=== PATIENT | male | born 1940 | race Caucasian/White ===

== ENCOUNTER → 2024-08-10 10:57 | Outpatient (REF) | payer MEDICARE, SELFPAY | LOC: RCS 10:57 | PROVIDERS: ATTENDING PHYSICIAN Internal Medicine Cardiovascular Disease | DX: I35.0 Nonrheumatic aortic (valve) stenosis (principal); E78.00 Pure hypercholesterolemia, unspecified; I48.0 Paroxysmal atrial fibrillation | CPT/HCPCS: 93306 ==

== ENCOUNTER 2024-08-25 12:00 | Emergency (ER) | payer MEDICARE, SELFPAY ==
[2024-08-25] VITALS (9 sets, daily range): BP systolic 87–124; BP diastolic 55–79; PULSE 80–87; BMI 24.2
[2024-08-25 12:18] LABS: % Basophils 0.6 % (0-2); % Eosinophils 1.8 % (0-6); % Immature Granulocytes 0.3 % (0-0.5); % Monocytes 7.6 % (1.7-9.3); % Neutrophils 63.7 % (42.2-75.2); Absolute Eosinophils 0.1 10^3/uL (0-0.7); Absolute Lymphocytes 1.6 10^3/uL (1.2-3.4); Absolute Monocytes 0.5 10^3/uL (0.1-0.6); Hemoglobin 12.7 g/dL (13.0-18.0); Mean Corp Hgb Conc. 34.3 g/dL (33.0-37.0); Mean Corpuscular Hgb 31.3 pg (27.0-31.0); Mean Corpuscular Volume 91.1 fL (80.0-94.0); Mean Platelet Volume 9.1 fL (7.4-10.4); Nucleated Red Blood Cells % 0 % (-); Platelet Count 146 10^3/uL (130-400); Red Blood Cell Count 4.06 10^6/uL (4.70-6.10); Red Cell Dist. Width 12.1 % (11.5-14.5); White Blood Cell Count 6.3 10^3/uL (4.8-10.8)
[2024-08-25 12:34] LABS: ALT (SGPT) 28 U/L (0-50); AST (SGOT) 30 U/L (17-59); Albumin 3.5 g/dl (3.5-5.0); Alkaline Phosphatase 77 U/L (38-126); Blood Urea Nitrogen 21 mg/dl (9-20); Calcium 8.3 mg/dl (8.4-10.2); Carbon Dioxide 21 mmol/L (22-30); Chloride 108 mmol/L (98-107); Estimated Creatinine Clearance 50 ml/min; Glucose 121 mg/dl (70-99); Sodium 140 mmol/L (135-145); Total Bilirubin 1.7 mg/dl (0.2-1.3); Total Protein 5.7 g/dl (6.3-8.2); eGFR > 60.00
[2024-08-25] MEDS: NSS 1000 IV (12:39)
[2024-08-25 12:46] LABS: Troponin I < 0.012 ng/ml
--- NOTE | 2024-08-25 13:54 | ED.GENMED ---
History of Present Illness
General
Chief Complaint: Fainting/Passed Out
Time Seen by Provider: 08/25/24 12:02
History of Present Illness
History of Present Illness:
84-year-old male with history of PE on Xarelto presenting to the emergency department after a syncopal episode. Patient reports he was at a car show prior to arrival. He was sitting in the sun, incidentally started to feel lightheaded, sat down
and had a syncopal episode, witnessed. No report of any fall or trauma. Denies any prodromal chest pain or difficulty breathing. Reports that he now feeling fine. Does admit that he only had half a bottle of water today, did not eat anything.
Reports history of 1 syncopal episode in the past. Denies any weakness or numbness to his extremities. Denies fever, cough, infectious symptoms. Denies additional acute medical complaints.
Phy Exam
Physical Exam
Physical Exam:
General: Well-appearing, no clinical signs of dehydration, nontoxic and in no acute distress
HEENT: protecting airway
Neck: appears supple
CV: Normal heart rate, regular rhythm, no evidence of cyanosis
Resp: No accessory muscle use, no increased work of breathing, lungs clear to auscultation bilaterally
Abd: Soft and non-distended, no tenderness to palpation
Extremities: No deformities, no swelling, no erythema
Neuro: alert, no focal neurologic deficit
: deferred
Rectal: deferred
Psych: Normal affect
Skin: Intact
Course
Orders/Labs/Results
Orders:
Orders
08/25/24 12:06
Electrocardiogram (*1) Urgent
Reason for Study: Syncope
08/25/24 12:07
EKG- Treatment ONCE
08/25/24 12:08
Complete Blood Count/With Diff Urgent
Comprehensive Metabolic Panel Urgent
Troponin I Urgent
08/25/24 12:27
0.9% Sodium Chloride 1000 ml [Nss] 1,000 ml IV BOLUS
08/25/24 13:43
Orthostatic VS- Treatment ONCE
08/25/24 14:00
Electrocardiogram (*1) Urgent
EKG- Treatment ONCE
Abnormal Lab Results
08/25/24
12:08
RBC 4.06 L 10^6/uL
(4.70-6.10)
Hgb 12.7 L g/dL
(13.0-18.0)
Hct 37.0 L %
(39.0-52.0)
MCH 31.3 H pg
(27.0-31.0)
Chloride 108 H mmol/L
(98-107)
Carbon Dioxide 21 L mmol/L
(22-30)
BUN 21 H mg/dl
(9-20)
Glucose 121 H mg/dl
(70-99)
Calcium 8.3 L mg/dl
(8.4-10.2)
Total Bilirubin 1.7 H mg/dl
(0.2-1.3)
Total Protein 5.7 L g/dl
(6.3-8.2)
08/25/24 12:08
08/25/24 12:08
Vital Signs
Initial and Last Documented VS:
Initial Vital Signs
Temp Pulse Resp BP Pulse Ox
97.6 F 71 11 114/76 96
08/25/24 12:02 08/25/24 12:02 08/25/24 12:02 08/25/24 12:02 08/25/24 12:02
Last Documented Vital Signs
Temp Pulse Resp BP Pulse Ox
97.6 F 83 18 101/66 96
08/25/24 12:02 08/25/24 14:00 08/25/24 14:00 08/25/24 14:00 08/25/24 14:00
MDM/Problems Addressed
MDM/Problems Addressed:
84-year-old male with past medical history of PE on Xarelto presenting to the emergency department for a syncopal episode prior to arrival. Vital signs on arrival are normal.
On exam patient is well-appearing, awake, alert, no physical signs of trauma. Benign cardiac and pulmonary exam. Symptom presentation and physical exam appears most consistent with vasovagal syncope. Patient reports he was out in the sun, had an
or drink anything prior to arrival, prodromal lightheadedness. No focal neurologic deficits on exam with lower suspicion for central neurologic process. Will administer IV fluids in the setting of suspected volume depletion. Will screen Johnny
analysis. EKG obtained, does have some T wave inversions laterally, no prior for comparison. Patient presently without chest pain. Will send troponin.
13:50 - Labs are unremarkable. Blood pressure is slightly low, however maintaining normal MAP. Will check orthostatics and recheck EKG to ensure no interval change.
14:30 - EKG unchanged. Orthostatics are negative. At this time feel stable for discharge. Patient in agreement with plan. However advise close outpatient primary care follow-up. Advised continued oral hydration. Return precautions discussed
and patient verbalized understanding
*EKG
Interpreted by ED Provider?: Yes
EKG Intrepretation Date: 08/25/24
EKG Intrepretation Time: 14:01
Interpretation: abnormal
Comparison EKG: no comparison EKG present
Heart Rate: 77
Rate: normal
Rhythm: sinus
Hurt: left axis deviation
Interval: normal interval
QRS Pattern: normal QRS
Ischemia: non-specific ST changes
*Critical Care Note
Total Time (30-74mins, 75-104mins- exclusive of procedures): Not Applicable
ED Attending Note
-
Portions of this chart may have been created with voice recognition software.� Occasional wrong word or��sound alike� substitutions may have occurred due to the inherent limitations of voice recognition software.
Discharge Plan
Departure
Patient Disposition: Home (Routine Discharge)
Date of Disposition: 10/06/24
Time of Disposition: 14:28
Patient with high blood pressure during this ER visit?: No
Condition: Good
Discharge Problem:
Syncope and collapse
Instructions: Syncope (Fainting) (DC), Vasovagal Response (DC)
Referrals:
Laurita Rice MD [Family Provider] -
Activity Restrictions/Additional Instructions:
You were seen in the emergency department for syncopal episode (passing out)
You were found to have normal laboratory analysis. You are suspected to be dehydrated. Please continue to drink fluids
Please follow-up closely with your primary care physician.
Return to the emergency department for any worsening of your symptoms, or any development of chest pain, difficulty breathing, abdominal pain with persistent vomiting and inability to tolerate food or liquid by mouth (concern for dehydration),
weakness or lightheadedness, or feeling like you are going to pass out again, headache or confusion, fever greater than 100.4, or any additional symptoms that are concerning to you.
Thank you for choosing [facility].
Interventions
Interventions:
*Risk Screen - Suicide Last Done: 08/25/24 12:05
*General Assessment Last Done: 08/25/24 12:09
*Neglect/Abuse Screening Last Done: 08/25/24 12:05
ED- Fall Risk Assessment Last Done: 08/25/24 12:05
*ED COVID-19 Vaccine History Last Done: 08/25/24 12:05
ED- Cardiac Assessment Last Done: 08/25/24 12:06
ED- Neurological Assessment Last Done: 08/25/24 12:06
Discharge Date and Time
Print Language: ROMANIAN
== END 2024-08-25 15:21 | disposition home or self-care (01) ==
LOC: EMR 12:00
PROVIDERS: EMERGENCY PHYSICIAN Student in an Organized Health Care Education/Training Program; FAMILY PHYSICIAN Family Medicine
DX: R55 Syncope and collapse (principal); Z79.01 Long term (current) use of anticoagulants; Z86.711 Personal history of pulmonary embolism
CPT/HCPCS: 99283; 96360; 80053; 84484; 85025; 93005

== ENCOUNTER 2024-09-18 08:12 | Day surgery (SDC) | payer MEDICARE, SELFPAY ==
--- NOTE | 2024-09-17 16:10 | CONSULT.STRU ---
Consultation
-
Date/Time Consultation Requested: 09/18/2024
Date/Time Consultation Performed: 09/18/2024
Requesting Provider: Jeanine Johnson MD
Performing Provider: MANJIT De La Fuente
Reason for Consultation: /TAVR
Patient History
Physicians
Family Physician: Varun Medina MD
Outpatient Cis Coordinator: Gabriel Hu MD
Primary Cis Coordinator: Gabriel Hu MD
History of Present Illness
Mr. Edwards is a very pleasant 84 yom that presents with symptomatic aortic stenosis associated with fatigue noticing he was unable to play a full round of 18 holes in golf. He also states he has been more tired lately. His echocardiogram from
08/10/2024 is notable for an EF 55-60%, AV P/M 103/53, RAEGAN 0.6, pk Chris 5.09, mild AI, MAC with mild MR, mild TR, PAP 20. Discussed the pathophysiology and treatment options of aortic stenosis including SAVR and TAVR. Explained the evaluation process
comprising of CT scan, CT surgical consult, dental clearance, and a heart team discussion. TAVR booklet, appointments, prescriptions, and contact information given to patient. Allowed for and answered questions at bedside.
Past Medical History
Past Medical History: Atrial Fib (PAF C2V:3), Hypercholesterolemia, Valvular Disease (aortic stenosis) and Other (PE, prostate Ca, glaucoma, protein C deficiency, hiatal hernia)
Past Surgical History
Past Surgical History: Other (LE clot removal, cataract extraction and lens implant)
Dental History
[facility] dentistry
Family History
Mother: N/A
Father: N/A
Social History
Alcohol: Daily (1-2 drinks daily)
Drug: None
Tobacco: Former Smoker
Personal:
Living: With Spouse
Allergies
Allergy/AdvReac Type Severity Reaction Status Date / Time
diazepam [From Valium] Allergy Nausea / Verified 08/25/24 12:32
Vomiting
enoxaparin [From Lovenox] Allergy Racing Verified 08/25/24 12:32
Heart
rofecoxib [From Vioxx] Allergy Racing Verified 08/25/24 12:32
Heart
Home Medications
CoEnzym Q10 200 mg daily
Dorzolamide-Timolol 2-0.5% 1 gtt (R) BID
Multivitamin 1 tab daily
Riveroxaban 20 mg daily
AREDS2 1 tab BID
STS%
STS %: 3.08
Review of Systems
-
History Source: Patient
General: Reports Fatigue
HEENT: Reports No Symptoms
Respiratory: Reports No Symptoms
Cardiac: Reports No Symptoms
Abdomen/GI: Reports No Symptoms
: Reports No Symptoms
Musculoskeletal: Reports No Symptoms
Skin: Reports No Symptoms
Neurological: Reports No Symptoms
Vascular: Reports No Symptoms
Physical Exam
Labs
08/25/2024:
HH 12.7/37.0
plt: 146K
BUN/Creatinine: 21/1.0
GFR: >60
Diagnostic Studies
Echocardiogram 08/10/2024:
CONCLUSIONS
Mild concentric left ventricular hypertrophy. No regional wall motion
abnormalities are seen. LV ejection fraction is 55-60% by Maravilla's method of
discs. Visually, EF = 50-55%. Diastolic function indeterminate.
Mitral valve opens normally. Mitral annular calcification. Mild mitral
regurgitation.
Thickened calcified aortic valve with restricted leaflet motion. Severe aortic
stenosis. Peak/mean gradients across the aortic valve are 103 mmHg/53 mmHg
respectively. The aortic valve by the Continuity equation is calculated at 0.6
cm2 using LVOT diameter 2.2 cm. Mild aortic regurgitation.
Cardiac Catheterization 09/18/2024:
Coronary Angiography:
Dominance: Right
Left Main: Medium caliber, normal.
Left Anterior Descending: The left anterior descending artery is a medium caliber vessel that gives rise to 1 major medium caliber high diagonal branch. These vessels are widely patent with mild to moderate nonobstructive luminal irregularities.
Ramus intermedius: Medium caliber ramus intermedius branch widely patent with mild to minimal irregularities.
Left Circumflex: The left circumflex is a medium caliber nondominant system that gives rise to a branching major obtuse marginal branch. Mild nonobstructive luminal irregularities with normal flow.
Right Coronary: The right coronary artery is a medium to large caliber dominant vessel that gives rise to a relatively small posterior descending artery and 2 medium posterior left ventricular branches. These vessels are widely patent with no focal
flow-limiting disease.
Fluoroscopy Time (min): 2.9
Radiation Dose (mGy): 161
DAP (Gy.cm2): 11
Closure device: None. A TR band was applied for hemostasis at the right wrist.
Complications: None.
ASSESSMENT:
1: Severe aortic valvular stenosis.
2: Mild nonobstructive coronary artery disease.
CONCLUSIONS and RECOMMENDATIONS:
1: Proceed with formal TAVR evaluation.
Procedure Type:�Isolated AVR
PERIOPERATIVE OUTCOME ESTIMATE %
Operative Mortality 3.08%
Morbidity & Mortality 7.74%
Stroke 1.46%
Renal Failure 1.5%
Reoperation 4.36%
Prolonged Ventilation 3.52%
Deep Sternal Wound Infection 0.038%
Long Hospital Stay (>14 days) 4.76%
Short Hospital Stay (<6 days)* 45.2%
Exam
General: Well Developed, Well Nourished, No Apparent Distress and Comfortable
HEENT: Moist Mucous Membranes
Neck: Trachea Midline
Respiratory: Clear
Cardiac: Regular Rhythm and Murmur (II/)
GI: Soft, Non Tender, Non Distended and Normal Bowel Sounds
Rectal: Deferred by Provider
Skin: Warm
Neuro: Awake, Alert and Oriented
Psych: Calm
Assessment / Plan
-
Aortic Stenosis
Continue with TAVR evaluation
Trend creatinine after contrast (Rx given)
TAVR CT scan (10/04)
CT surgical consult ( TT 10/02)
Frailty testing and Kccq12 at consult
dental clearance
Will hold Xarelto x 48 hours before TAVR. Will place on aspirin while Xarelto held
Heart team discussion
Data Reviewed
-
Instrumentation Engineer: Report Reviewed by me
Echo: Report Reviewed by me and Discussed with Physician
Labs: Labs Reviewed by me
Old Records: Reviewed (Dr. Hu's OV reviewed)
Total Time Spent with Patient (in minutes): 45
[2024-09-18] VITALS (11 sets, daily range): BP systolic 102–170; BP diastolic 64–109; BMI 23.3
[2024-09-18] MEDS: LOW STRENGTH ASPIRIN 324 MG PO (08:31)
--- NOTE | 2024-09-18 08:39 | ITS.CL.CATH ---
[employer] Manager - Catheterization
Cardiac Catheterization
Procedure Report:
LEFT HEART CATHETERIZATION
Date of Procedure: September 18, 2024
Procedures performed:
1: Coronary angiography
2: Left ventricular hemodynamic assessment
Primary Care Physician: Dr. Bucky Reyes
Primary Shank Cementer Hand: Dr. Gabriel Hu
INDICATION: The patient is an 84-year-old man with a past medical history significant for severe aortic stenosis referred for coronary angiography in preparation for aortic valve intervention. The patient is on chronic Xarelto for a prior upper
extremity DVT which was held for this procedure. Echocardiography performed on January 10 showed normal LV systolic function with a mean gradient of 39 mmHg across the aortic valve and an aortic valve area by the continuity equation is 0.76 cm�
and aortic valve dimensionless index of 0.23.
ACCESS: The patient was prepped and draped in usual sterile fashion. A 5 Pashto sheath was placed in the right radial artery using the Seldinger over the wire technique.
HEMODYNAMIC FINDINGS (mmHg):
LV(s/d,EDP): 190/11, 18
Ao(s/d,m): 151/73, 100
Mean gradient on pullback: 39 mmHg
ANGIOGRAPHIC FINDINGS:
Single-plane Left Ventriculography in [facility] Projection: Not done
Coronary Angiography:
Dominance: Right
Left Main: Medium caliber, normal.
Left Anterior Descending: The left anterior descending artery is a medium caliber vessel that gives rise to 1 major medium caliber high diagonal branch. These vessels are widely patent with mild to moderate nonobstructive luminal irregularities.
Ramus intermedius: Medium caliber ramus intermedius branch widely patent with mild to minimal irregularities.
Left Circumflex: The left circumflex is a medium caliber nondominant system that gives rise to a branching major obtuse marginal branch. Mild nonobstructive luminal irregularities with normal flow.
Right Coronary: The right coronary artery is a medium to large caliber dominant vessel that gives rise to a relatively small posterior descending artery and 2 medium posterior left ventricular branches. These vessels are widely patent with no focal
flow-limiting disease.
Fluoroscopy Time (min): 2.9
Radiation Dose (mGy): 161
DAP (Gy.cm2): 11
Closure device: None. A TR band was applied for hemostasis at the right wrist.
Complications: None.
ASSESSMENT:
1: Severe aortic valvular stenosis.
2: Mild nonobstructive coronary artery disease.
CONCLUSIONS and RECOMMENDATIONS:
1: Proceed with formal TAVR evaluation.
Jeanine Johnson M.D.
Copy to: Dr. Bucky Reyes
== END 2024-09-18 12:44 | disposition home or self-care (01) ==
LOC: CATH 08:12
PROVIDERS: ATTENDING PHYSICIAN Internal Medicine Interventional Cardiology; PRIMARYCARE PHYSICIAN Student in an Organized Health Care Education/Training Program; REFERRING PHYSICIAN Internal Medicine Cardiovascular Disease
DX: I08.0 Rheumatic disorders of both mitral and aortic valves (principal); I25.10 Atherosclerotic heart disease of native coronary artery without angina pectoris; I48.0 Paroxysmal atrial fibrillation; E78.00 Pure hypercholesterolemia, unspecified; Z85.46 Personal history of malignant neoplasm of prostate; Z87.891 Personal history of nicotine dependence; Z79.01 Long term (current) use of anticoagulants
CPT/HCPCS: 93458; C1894; Q9967

== ENCOUNTER → 2024-10-04 09:17 | Outpatient (REF) | payer MEDICARE, SELFPAY | LOC: RAD 09:17 | PROVIDERS: ATTENDING PHYSICIAN Nurse Practitioner Acute Care; FAMILY PHYSICIAN Internal Medicine Cardiovascular Disease | DX: I35.0 Nonrheumatic aortic (valve) stenosis (principal) | CPT/HCPCS: 74174; 75572; Q9967 ==

== ENCOUNTER 2024-11-14 07:15 | Inpatient (IN) | payer MEDICARE, SELFPAY ==
[2024-11-05 12:02] VITALS: BMI 23.8
[2024-11-05 12:54] LABS: Urine Albumin Negative (Neg - Trace); Urine Bilirubin Negative (Negative); Urine Character Clear (Clear); Urine Color Yellow; Urine Glucose Negative (Negative); Urine Ketone Negative (Negative); Urine Leukocyte Negative (Negative); Urine Nitrite Negative (Negative); Urine Occult Blood Negative (Negative); Urine Specific Gravity 1.015 (<1.030); Urine Urobilinogen Negative (Neg - 1+)
[2024-11-05 13:02] LABS: % Basophils 0.7 % (0-2); % Eosinophils 2.4 % (0-6); % Immature Granulocytes 0.3 % (0-0.5); % Lymphocytes 25.5 % (20.5-51.1); % Monocytes 10.5 % (1.7-9.3); % Neutrophils 60.6 % (42.2-75.2); Absolute Eosinophils 0.1 10^3/uL (0-0.7); Absolute Lymphocytes 1.5 10^3/uL (1.2-3.4); Absolute Monocytes 0.6 10^3/uL (0.1-0.6); Absolute Neutrophils 3.6 10^3/uL (1.4-6.5); Hematocrit 42.3 % (39.0-52.0); Hemoglobin 14.5 g/dL (13.0-18.0); Mean Corp Hgb Conc. 34.3 g/dL (33.0-37.0); Mean Corpuscular Hgb 32.2 pg (27.0-31.0); Mean Corpuscular Volume 93.8 fL (80.0-94.0); Mean Platelet Volume 9.2 fL (7.4-10.4); Nucleated Red Blood Cells % 0 % (-); Platelet Count 156 10^3/uL (130-400); Red Blood Cell Count 4.51 10^6/uL (4.70-6.10); Red Cell Dist. Width 11.9 % (11.5-14.5); White Blood Cell Count 5.9 10^3/uL (4.8-10.8)
[2024-11-05 13:09] LABS: INR 1.26; PT 16.1 Sec (11.4-14.6)
[2024-11-05 13:10] LABS: APTT 36.4 Sec (23.4-35.0)
[2024-11-05 13:42] LABS: ALT (SGPT) 34 U/L (0-50); AST (SGOT) 35 U/L (17-59); Albumin 4.2 g/dl (3.5-5.0); Alkaline Phosphatase 78 U/L (38-126); Blood Urea Nitrogen 20 mg/dl (9-20); Carbon Dioxide 26 mmol/L (22-30); Chloride 103 mmol/L (98-107); Direct Bilirubin 0.1 mg/dl (0.0-0.4); Estimated Creatinine Clearance 50 ml/min; Glucose 105 mg/dl (70-99); Potassium 4.3 mmol/L (3.5-5.1); Sodium 137 mmol/L (135-145); Total Bilirubin 1.2 mg/dl (0.2-1.3); Total Protein 6.7 g/dl (6.3-8.2); eGFR > 60.00
[2024-11-05 13:49] LABS: NT-proBNP 224 pg/ml
--- NOTE | 2024-11-05 14:16 | CM ---
Chart reviewed. Met with the patient and his in PAT. Reviewed preoperative and postoperative instructions and restrictions, along with showering guidelines. Gave patient 2 soaps. Patient is agreeable to a home visit by CT Transitional
RN. Patient is independent of ADLS, lives with his in a [address], 1 [address]PHANIE, 0 DME. Plan is for the patient to return home with CT Transitional RN.
--- NOTE | 2024-11-05 14:16 | HPS.HSE ---
Family Physician
-
Family Physician: Bucky Reyes, DO
Chief Complaint
-
Fatigue
History of Present Illness
Mr. Edwards is a very pleasant 84 yom that presents with symptomatic aortic stenosis associated with fatigue noticing he was unable to play a full round of 18 holes in golf. He also states he has been more tired lately. His echocardiogram from
08/10/2024 is notable for an EF 55-60%, AV P/M 103/53, RAEGAN 0.6, pk Chris 5.09, mild AI, MAC with mild MR, mild TR, PAP 20. Discussed the pathophysiology and treatment options of aortic stenosis including SAVR and TAVR. He has been evaluated by the
heart team and recommended for TF TAVR .
Assessed in preadmission testing and confirmed medication list. His last dose of Xarelto will be Monday11/11/2024, he will take 325mg aspirin on Monday 11/12, 81 mg aspirin 11/13 and 11/14. Aspirin will be discontinued when Xarelto is resumed post
TAVR. Mr. Edwards will arrive to the [facility] @ 0730. Discussed risked of procedure as reviewed with Dr. Maldonado in consult including ppm, stroke, and vascular injury. Informed patient that he will get a phone call from the heart team on Monday
(11/12) to confirm time and location of arrival. Allowed for and answered questions.
Medical History
Past Medical History
Past Medical History: Reports Arrhythmia (Afib), Cancer (prostate (XRT completed 2016)), Valvular Disease (aortic stenosis) and Other (Protein C deficiency, HLD, hiatal hernia, PE, glaucoma, former smoker, BPH, Arthritis, deviated septum)
Past Surgical History: Reports Other (LE clot removal, cataract extraction and lens implant, steroid injection in neck, dental implants)
Social History
Tobacco: Former Smoker
Alcohol: Daily
Drug: None
Personal:
Living: With Family
Employment: Retired
Family History
Family History: Not pertinent
Allergies / Home Medications
Allergies reflects when Allergies were last updated in [facility].
Valium, Vioxx, Levaquin
Home Medications with original date entered in [facility]
Allergy/Medication List:
CoQ-10
Dorzolamide-Timolol , Notes to Pharmacist: 22.3-6.8mg/ml 1 drop both eyes BID
Multivitamin(Multiple Vitamin) - Tablet 1 tablet Orally Once a day
Other , Notes to Pharmacist: AREDS2
Xarelto(Rivaroxaban) 20 MG Tablet 1 tablet with food Orally Once a day
Review of Systems
-
History Source: Patient
A 12 point ROS was completed and negative except as noted: Yes
Constitutional: Reports Fatigue
Physical Exam
Physical Exam
General: Well Developed, Well Nourished, No Apparent Distress and Comfortable
HEENT: NormoCephalic and Atraumatic
Respiratory: Clear
Cardiac: Murmur (III/)
Breast: Deferred by me
GI: Soft, Non Tender and Non Distended
Rectal: Deferred by Provider
Genito-urinary: Deferred by me
Musculoskeletal: Edema, Left Lower Extremity (trace) and Edema, Right Lower Extremity (Trace)
Skin: Warm and Dry
Neuro: Awake and Alert
Psych: Calm
Laboratory Results
-
11/05/24 12:13
11/05/24 12:13
Laboratory Results
PT 16.1 Sec (11.4-14.6) H 11/05/24 12:13
INR 1.26 11/05/24 12:13
APTT 36.4 Sec (23.4-35.0) H 11/05/24 12:13
Total Bilirubin 1.2 mg/dl (0.2-1.3) 11/05/24 12:13
AST 35 U/L (17-59) 11/05/24 12:13
ALT 34 U/L (0-50) 11/05/24 12:13
Alkaline Phosphatase 78 U/L (38-126) 11/05/24 12:13
Data Reviewed
-
Diagnostic Radiology: Report Reviewed by me
CT Scan: Report Reviewed by me and Discussed with Physician (TAVR CT scan reviewed with the heart team)
Medical Tests (Nuc Med, Echo, EKG etc): Report Reviewed by me and Discussed with Physician (cardiac catheterization and echocardiogram reviewed with the heart team)
Lab Data: Labs Reviewed by me
Old Records: Reviewed (Dr. Hu and Dr. Maldonado's office note)
Impression/Plan
-
IMPRESSION/ PLAN:
Aortic Stenosis
Plan for TF TAVR utilizing a 29 mm S3 via transfemoral access with Dr. Maldonado and Dr. Rolle
Last dose Xareto Sunday 11/11, Aspirin 325mg 11/12, Aspirin 81 mg 11/13, 11/14. Discontinue aspirin when xarelto resumed
POD#1/#30 echocardiogram
Cardiac Rehab Consult.
[2024-11-05 14:21] LABS: Glycohemoglobin (HgbA1c) 5.5 % (4.0-5.6)
[2024-11-14] VITALS (50 sets, daily range): BP systolic 53–155; BP diastolic 37–110; BMI 23.2
--- NOTE | 2024-11-14 09:41 | W.CVOR.SURPR ---
CVOR Surgeon Immed Pre Op
-
I have examined this patient prior to performance of the scheduled procedure.
The patient's condition is unchanged from the time of the dictated/written History and
Physical and the patient is able to undergo the scheduled procedure.
TF TAVR
[2024-11-14] MEDS: ANCEF 10 IV (10:30)
[2024-11-14 11:43] LABS: ACT-LR - POC 297 Seconds (116-155)
[2024-11-14 11:57] LABS: ACT-LR - POC 298 Seconds (116-155)
--- NOTE | 2024-11-14 12:09 | W.PN.CT.SURG ---
CT Surgery Operative Note
-
OPERATIVE REPORT
Preoperative Diagnosis: Severe aortic valve stenosis, symptomatic
Postoperative Diagnosis: Same
Procedure(s) Performed: Right trans femoral TAVR with a 29mm Lao TAVR valve
Date of Procedure: 11/14/24
Comorbidities:
1. Severe aortic stenosis, Symptomatic
2. 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
3. Hypertension
4. Hyperlipidemia
5. BPH
6. History of pulm embolism
7. History of atrial fibrillation
8. History of prostatic cancer status post radiation for treatment
Cardiac Surgeon: Osmar Maldonado MD, MS
Furniture Duster: Camron Rolle MD
Anesthesia: Conscious Sedation and Local Analgesia
EBL: 100cc
Products: none
Implant: 29 mm Lao TAVR valve, SN: [id number]
Indication(s) for Procedures: 84-year-old male with symptomatic severe aortic stenosis. CT-TAVR protocol revealed acceptable anatomy for TAVR access and implantation. This patient was seen by the multidisciplinary structural heart team with
overall consensus between general cardiology, interventional cardiology, and cardiac surgery that they were a TAVR appropriate candidate.
Start time: 1105hrs
Deployment time: 1144hrs
End time: 1205hrs
Radiation Dose (mGy): 286.64
DAP (cm2.Gy): 29.5530
Fluoroscopy time (minutes): 13.2
Contrast volume (ml): 105
TAVR gradient (mmHg): 6mmHg
Heparin Dose: 5500units
Protamine Dose: 40mg
Final Valve Positionin/10
Findings: Preoperative LVEF was 65% and was 65% following TAVR without inotropic support. Function was overall normal without regional wall motion abnormalities or dyskinesia. The aortic valve was well seated without detectable PVL and mean gradient
across the new valve was 6mmHg. following: The valve there was a new right bundle branch block, the patient did not require any additional pacing and so the pacing wire was removed while on the Windows Desktop Engineer table. There was successful placement of 29 mm
nominal TAVR valve without acute complications. The patient had an LVEDP of approximately 30 mmHg prior to TAVR deployment indicating acute on chronic systolic and diastolic congestive heart failure with volume overload. Lasix given in the
recovery suite.
Access:
1. Device -right common femoral artery, perclose x 2 [+ 8Fr angioseal]
2. Pigtail -right radial plus TR band
3. Transvenous Pacer -left common femoral vein
Description of Procedure: The patient was taken to the veterinary laboratory diagnostician. Their identity and procedure to be performed were verified and they were positioned supine on the veterinary laboratory diagnostician table. Induction via conscious sedation. The patient was then prepped and
draped from chin to thigh in a sterile fashion. A preoperative time-out was performed with all members of the team present. Arterial and venous access was performed using fluoroscopy and ultrasound guidance with micropuncture and Seldinger
technique. Two perclose devices were used on the device side followed by access to the aorta with a stiff wire to facilitate E-sheath placement. Heparin was given. A stiff straight wire and AL-1 catheter was used to cross the aortic valve. An LVEDP
was then measured here. The stiff wire was exchanged for an extra stiff coiled tip wire. The valve was prepped and mounted on to the device carrier. An ACT of >250 was achieved. We verified x 3 that the valve was mounted in the correct orientation
with the skirt of the valve directed toward the tip of the device carrier. We advanced the device into the descending thoracic aorta where the valve was them mounted onto the balloon under fluoroscopy. The device was flexed and advanced over the
arch into the root and positioned across the aortic valve. Contrast fluoroscopy was used to visualize the prosthesis across the valve and to guide positioning. A pigtail catheter in the RCC as used as a guide. We aimed to have the bottom of the
device marker at the annular hinge point. The device sheath was pulled back. We performed a quick pre-deployment time out. The pacer was turned on and had capture. Blood pressure fell accordingly, angiography was done to verify the intended final
placement and the valve was deployed with 5 seconds of rapid pacing to nominal volume. The balloon was deflated and the pacer was turned off. We had recovery of vitals. The device carrier was unflexed and positioned back in the descending thoracic
aorta. A transthoracic echocardiogram was performed. The device was removed from the E-Sheath maintaining wire access followed by removal of the E-sheath as we cinched down the perclose devices. There was acceptable hemostasis. The pigtail was
exchanged after accessing the descending thoracic aorta with a J-wire and a long pigtail was inserted over the wire into the descending/abdominal and completion aortogram with runoff run-off angiography was performed. There was no stenosis or
dissection of the right common iliac or femoral system. There was acceptable hemostasis of bilateral groins and manual pressure was held following wire removal. Low dose protamine was administered after checking another ACT.
All instrument, sponge, and needle counts were confirmed to be correct x 2 at the end of the operation. The patient was transferred to the cardiac intensive care unit in stable condition.
I, Dr. Osmar Maldonado, was present, scrubbed for, and performed all critical elements of this procedure.
Osmar Maldonado MD
Cardiothoracic Surgeon
[facility]
This operative dictation was created using the [employer] dictation system. Please excuse any grammatical, typographical, or 'sound alike' errors
[2024-11-14] MEDS: LEVOPHED 250 IV (12:29)
--- NOTE | 2024-11-14 14:12 | W.PN.UPDATE ---
Update Note
Progress Note Update
Reviewed Mr. Edwards with the heart team in the preTAVR SDM meeting and confirmed a 29mm S3 via right transfemoral access. Patient will resume Xarelto post TAVR, aspirin to be d/c'd when Xarelto resumed. LVEDP 30mmHg. #29mm S3 (serial# [id number])
successfully implanted via (R) transfemoral access. Post MG 6mmHg.
--- NOTE | 2024-11-14 14:28 | CM ---
Chart reviewed. Patient is in the OR today. Patient is independent of ADLS, lives with his in a [address], 1 [address], 0 DME. Plan is for the patient to return home with CT Transitional RN.
[2024-11-14] MEDS: THERAGRAN PO (14:54)
[2024-11-14] MEDS: LASIX 40 MG IV (15:20)
[2024-11-14 15:35] LABS: Magnesium 2.2 mg/dl (1.6-2.3)
[2024-11-14] MEDS: ANCEF IV (15:38)
[2024-11-14] MEDS: FLUSH (NSS) 1 FLUSH IV (17:07)
[2024-11-14] MEDS: COSOPT EYE DROPS 1 DROP OPHTH ×2 (17:07→20:43)
[2024-11-14] MEDS: KCL 20 MEQ PO (17:08)
[2024-11-14] MEDS: ANCEF 5 IV (17:10)
--- NOTE | 2024-11-14 17:43 | W.PN.UPDATE ---
Update Note
Progress Note Update
Responded to overhead Code 9. Per RN, patient became hypotensive and 'went out' after Levophed weaned to 1mcg/min. Patient responsive upon entering room. Levophed increased to 5mcg/min and LR 250cc bolus given. Dr Teresa present and EKG/labs
ordered. Groin sites with quater size sanguinous drainage (unchanged). BP improved t o105/70 an dpatient fully conversant with . Denies pain. Dr. Maldonado updated to events.
--- NOTE | 2024-11-14 17:45 | W.PN.UPDATE ---
Update Note
Progress Note Update
pt with episode of hypotension SBP in 60s and near syncope.
Tele with no pauses or bradycardia. Sinus rhythm with first degree AV block and LBBB (QRS 150-160msec)
This occurred with decreasing dose of levophed gtt.
Cont Levophed. Check ECG and CBC, CMP.
Agree with plan to go to CVICU.
CC time 31 min
--- NOTE | 2024-11-14 17:52 | PTCARENOTE ---
pts called out for help, rn went in to assess pt. pt was stating that he was feeling clammy and nauseas. RN rechecked bp it was 53/37. pt quickly became unresponsive, rn sternal rubbed pts chest. rn had just lowered levo gtt from 2mcg/min to 1
mcg/min. levo then turned back up to 3 mcg/min. pts bp came up to 83/65. KEELEY dalton at bedside to assess pt, levo gtt turned up to 5mcg/min. pt started to respond and become much more alert. pt resting in bed, sr on the monitor, hr in the
60s, bp 138/70. pt offers no complaints at this time. call suhas w/in reach.
[2024-11-14 18:54] LABS: Hematocrit 36.5 % (39.0-52.0); Hemoglobin 12.7 g/dL (13.0-18.0); Mean Corp Hgb Conc. 34.8 g/dL (33.0-37.0); Mean Corpuscular Hgb 31.9 pg (27.0-31.0); Mean Corpuscular Volume 91.7 fL (80.0-94.0); Mean Platelet Volume 9.4 fL (7.4-10.4); Platelet Count 122 10^3/uL (130-400); Red Blood Cell Count 3.98 10^6/uL (4.70-6.10); White Blood Cell Count 8.9 10^3/uL (4.8-10.8)
[2024-11-14 19:05] LABS: ALT (SGPT) 28 U/L (0-50); AST (SGOT) 39 U/L (17-59); Albumin 3.5 g/dl (3.5-5.0); Alkaline Phosphatase 77 U/L (38-126); Blood Urea Nitrogen 19 mg/dl (9-20); Calcium 8.2 mg/dl (8.4-10.2); Carbon Dioxide 22 mmol/L (22-30); Chloride 103 mmol/L (98-107); Estimated Creatinine Clearance 56 ml/min; Glucose 133 mg/dl (70-99); Potassium 4.1 mmol/L (3.5-5.1); Sodium 133 mmol/L (135-145); Total Bilirubin 1.6 mg/dl (0.2-1.3); Total Protein 5.8 g/dl (6.3-8.2); eGFR > 60.00
[2024-11-14] MEDS: LR 500 IV (19:35)
[2024-11-14] MEDS: OCUVITE SOFTGEL 1 CAP PO (20:43)
--- NOTE | 2024-11-14 21:42 | PTCARENOTE ---
Pt received seated in bed- with at bedside. Plan of care discussed. Neuro checks completed as documented. SR w/ 1st degree and BBB on the monitor. Levo running @ 3 mcg/min bps- 110s- 120s sys. R groin with a slow ooze but soft and R radial and
L groin CDI. Palpable pulses all around. getting his IS up to 2000. and OOB w/ stand by assistance.
[2024-11-15] VITALS (47 sets, daily range): BP systolic 73–120; BP diastolic 40–73; PULSE 86–105; BMI 23.0
[2024-11-15] MEDS: ZOFRAN 4 MG IV (01:25)
--- NOTE | 2024-11-15 01:28 | PTCARENOTE ---
after using the urinal- pt became nauseous and had a small emesis. Bp remained 104-110 sys HR 80s before and after urinating. PRN Zofran given per jan.
[2024-11-15 03:50] LABS: Hematocrit 38.6 % (39.0-52.0); Hemoglobin 13.3 g/dL (13.0-18.0); Mean Corp Hgb Conc. 34.5 g/dL (33.0-37.0); Mean Platelet Volume 9.6 fL (7.4-10.4); Platelet Count 123 10^3/uL (130-400); Red Blood Cell Count 4.15 10^6/uL (4.70-6.10); White Blood Cell Count 8.6 10^3/uL (4.8-10.8)
[2024-11-15 03:59] LABS: Blood Urea Nitrogen 20 mg/dl (9-20); Calcium 8.4 mg/dl (8.4-10.2); Carbon Dioxide 23 mmol/L (22-30); Chloride 102 mmol/L (98-107); Estimated Creatinine Clearance 50 ml/min; Glucose 147 mg/dl (70-99); Sodium 135 mmol/L (135-145); eGFR > 60.00
--- NOTE | 2024-11-15 05:52 | PTCARENOTE ---
Orthos completed. sitting to standing pt dropped from 99/60 to 73/44. Pt without complaints.
--- NOTE | 2024-11-15 06:45 | W.PN.CT ---
Today's Communication / Plan
-
-pod #1
-drips: Levo is off at 5 am.
-pt was orthostatic this am with sbp 100 supine and 73 standing. Consider Midodrine
-nsr 80s overnight. No tello or pauses
-new LBBB and 1st degree AVB post TAVR
-Echo today
-current meds (eye drops, MVI). Pt was on Xarelto preop
-encourage IS, OOB, ambulate
-Rhythm monitor at d/c
Assessment / Plan
-
- Severe symptomatic - s/p Right trans femoral TAVR with a 29mm Lao TAVR valve on 11/14/24, pod #1
- Postop TTE: LVEF was 65% pre and post TAVR without inotropic support, no regional wma or dyskinesia. The aortic valve was well seated without detectable PVL and mean gradient across the new valve was 6mmHg.
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
- Hypertension
- Hyperlipidemia
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
- BPH
- History of atrial fibrillation- on Xarelto preop
- History of prostatic cancer status post radiation for treatment 2017
- Hx LE clot removal
- Septum deviation
- Former smoker
- Acute postop LBBB, 1st degree AVB post TAVR
- Acute postop likely vasovagal syncope/hypotension-recovered quickly with 250 LR and increased Levo
Discussed patient care with: Nursing and Care Team
Subjective
-
Date of Service: November 14, 2024
Objective Data
-
Lab Results
11/14/24 18:36
11/14/24 18:36
PT 16.1 Sec (11.4-14.6) H 11/05/24 12:13
INR 1.26 11/05/24 12:13
APTT 36.4 Sec (23.4-35.0) H 11/05/24 12:13
Vital Signs
Vital Signs
Temp Pulse Resp BP Pulse Ox
97.3 F 77 18 116/72 99
11/14/24 14:30 11/14/24 19:35 11/14/24 19:30 11/14/24 19:35 11/14/24 19:30
CT Intake/Output/Weight
11/14/24 11/14/24 11/15/24
06:59 18:59 06:59
Intake Total 5740 / 5860 120 / 5860
Output Total 775 / 1575 800 / 1575
Balance 4965 / 4285 -680 / 4285
SaO2: 99
Physical Exam
-
General: Awake and AOx3
Cardiovascular: Regular rate & rhythm, No Murmurs and No Rub
Respiratory: Clear and Decreased Breath Sounds
Incision: Other (groins are cdi, soft, nontender, no hematoma b/l )
Extremities: No Edema
Abdomen: soft, nontender, nondistended, + bowel sounds
Data Reviewed
-
Lab Results: Results Reviewed
Medications: Active Meds Reviewed
Chest X-Ray: Report Reviewed and Image Reviewed
ECG: Report Reviewed and Image Reviewed
--- NOTE | 2024-11-15 07:38 | W.PN.ANS.POP ---
Anesthesia Post Operative
- Anesthesia Post Op Note
Vital Signs Stable-See Nursing Note: Yes
Airway Patent: Yes
Adequate Pain Control: Yes
Change in Mental Status: No
Current Postoperative Nausea & Vomiting: No
Anesthesia Complications: No
General Anesthetic Recall: No
Unplanned Admission: No
Post Op Hydration Adequate: Yes
--- NOTE | 2024-11-15 08:09 | W.PN.CARDCBS ---
Addendum entered and electronically signed by Camron Rolle MD 11/15/24 14:05:
Attending addendum: Patient seen and examined. PA note reviewed and findings confirmed by me. Post procedure hypotension but labs are stable. No prior history of orthostasis per Dr. Hu. Will review echocardiogram. Planned outpatient
monitor. Will follow
Original Note:
Today's Communication / Plan
-
repeat echo pending
follow BPs. consider additional gentle IVF today
follow rhythm. for counter molder upon DC
Impression / Plan
-
Primary Tangled Yarn Worker: Dr. Hu of [facility]
Assessment:
-Severe symptomatic s/p R TF TAVR 29mm Lao TAVR valve 11/14/24
-Hypotension post procedure with syncope
-Post procedure LBBB
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
-Hypertension
-Hyperlipidemia
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
-History of atrial fibrillation
-Chronic OAC with xarelto
-History of LE clot removal
-History of prostatic cancer status post radiation for treatment 2016
-BPH
-Former smoker
-Acute postop LBBB, 1st degree AVB post TAVR
-Acute postop likely vasovagal syncope/hypotension-recovered quickly with 250 LR and increased Levo
ECHO 08/10/24: EF 50-60%, MAC, mild MR, severe with peak/mean gradients 23/53 mmHg, RAEGAN 0.6 cm�, mild AR
ECHO 11/14/24: EF 65 to 70%, status post Lao LANCE TAVR with peak/mean gradients 11/6 mmHg, no AR seen
ECHO 11/15/24: pending
Plan:
-s/p R TF Lao TAVR 11/14/24. LVEDP during procedure noted to be 30mmHg and was diuresed with 40mg IV lasix
-post op with syncopal episode and hypotension which improved with 250cc LR and resuming levo
-echo 11/14 as above, EF 65-70%.
-levo now off, however remains with relative hypotension. was not on diuretic prior to admission. midodrine 5mg TID was added. would consider additional gentle IVF today and follow
-repeat echo 11/15 pending
-hgb stable at 13.3. no issues with groin sites overnight
-preprocedure had LVH with QRS widening, post op with LBBB nd 1st degree av block. follow on tele overnight. plan for OP monitor upon DC
-resume xarelto when ok from procedural standpoint
-d/w nursing. d/w CT surgery SUPERINTENDENT TRANSPORTATION
Progress Note - Tangled Yarn Worker
Subjective
Date of Service: November 15, 2024
reports no dizziness, lightheadedness. denies SOB
Objective
Labs:
11/15/24 02:57
11/15/24 02:57
Labs
Hgb 13.3 g/dL (13.0-18.0) 11/15/24 02:57
Hct 38.6 % (39.0-52.0) L 11/15/24 02:57
Plt Count 123 10^3/uL (130-400) L 11/15/24 02:57
PT 16.1 Sec (11.4-14.6) H 11/05/24 12:13
INR 1.26 11/05/24 12:13
APTT 36.4 Sec (23.4-35.0) H 11/05/24 12:13
Sodium 135 mmol/L (135-145) 11/15/24 02:57
Potassium 4.0 mmol/L (3.5-5.1) 11/15/24 02:57
BUN 20 mg/dl (9-20) 11/15/24 02:57
Creatinine 1.0 mg/dL (0.7-1.3) 11/15/24 02:57
Glucose 147 mg/dl (70-99) H 11/15/24 02:57
Vital Signs and I&O:
Vital Signs
Temp Pulse Resp BP Pulse Ox
98.7 F 86 18 73/44 97
11/15/24 07:27 11/15/24 05:35 11/15/24 07:27 11/15/24 05:35 11/15/24 07:27
Vital Signs
Temp Pulse Resp BP Pulse Ox
98.7 F 86 18 73/44 97
11/15/24 07:27 11/15/24 05:35 11/15/24 07:27 11/15/24 05:35 11/15/24 07:27
Intake & Output
11/13/24 11/14/24 11/15/24 11/16/24
07:59 07:59 07:59 07:59
Intake Total 5860 / 5860
Output Total 1575 / 1575
Balance 4285 / 4285
Physical Exam
Physical Exam
GEN: No distress, awake, alert, oriented to self, place
HEENT: supple, anicteric, mmm, eomi
LUNGS: CTA B/L, no wheezes
CV: Reg, S1/S2, no murmur
ABD: soft, BS+, NT/ND
EXT: No cyanosis, clubbing, edema
NEURO: Gross non-focal
SKIN: Warm, pink, dry. No rash
[2024-11-15] MEDS: OCUVITE SOFTGEL 1 CAP PO ×2 (09:16→19:34)
[2024-11-15] MEDS: THERAGRAN 1 TABLET PO (09:17)
[2024-11-15] MEDS: ProAmatine 5 MG PO ×3 (09:17→17:25)
[2024-11-15] MEDS: COSOPT EYE DROPS 1 DROP OPHTH ×2 (09:18→19:34)
[2024-11-15] MEDS: LR 500 IV (09:18)
[2024-11-15] MEDS: FLUSH (NSS) 1 FLUSH IV (09:19)
--- NOTE | 2024-11-15 10:07 | PTCARENOTE ---
Received patient this morning resting in bed, at the bedside. Bilateral groin sites are dry and intact, right radial site is dry and intact. Patient is oriented to self, knows he is in the hospital but does not recall the name, this is his
baseline mental status, no other neuro deficits noted. Patient denies any pain but is annoyed that he has not gotten much sleep and is not happy with interruptions from hospital staff. Patient remains orthostatic when standing and instructed to use
urinal and not bathroom yet. Given midodrine PO as ordered and receiving IV LR bolus.
--- NOTE | 2024-11-15 13:35 | CM ---
CM following for DC planning needs.
Pt. POD#1 from TAVR.
DC plan is for home w/ CT Transitional Care RN.
CM to follow.
--- NOTE | 2024-11-15 14:15 | W.PN.UPDATE ---
Update Note
Progress Note Update
Rhythm star heart monitor given to patient. Explained to and Mrs. Edwards how to apply, charge and return at the end of the 14 day period. Allowed for and answered questions. Verbalized understanding.
--- NOTE | 2024-11-15 14:34 | ITS.CL.TAVR ---
Career And Transition Teacher - TAVR Report
TAVR PRocedure
Procedure Report:
TRANSCATHETER AORTIC VALVE REPLACEMENT
Date of Procedure: November 14, 2024
Referring: Dr. Gabriel Hu
Operators: Drs. Camron Rolle and Osmar Maldonado
PROCEDURE PERFORMED:
1. Successful placement of 29 mm Lao Bettye S3 aortic valve via right common femoral approach.
PREPROCEDURE NYHA CLASS: 3
DESCRIPTION OF PROCEDURE: The patient was referred for assessment of severe symptomatic aortic stenosis and following a comprehensive evaluation it was felt that transcatheter aortic valve replacement (TAVR) would be the most appropriate treatment.
Informed consent was obtained prior to the procedure. A 'time-out' was called and the procedural plan was verbally confirmed by anesthesia, surgery, perfusion, and microbiological laboratory technician staff.
Arterial was obtained in the right radial artery and a 6 Barbadian radial sheath was inserted. Ultrasound guidance was utilized to gain venous access in the left common femoral vein and a 6 Barbadian sheath was inserted. Attention was then turned to the
right common femoral artery. Ultrasound guidance was utilized to obtain access in the right common femoral artery and a 6 Barbadian sheath was inserted. Angiography was performed and the arteriotomy site appeared appropriate for preclosure with 2 x
Perclose devices.
A 5 Fr transvenous pacemaker wire was then advanced from the left common femoral vein to the right ventricular apex where excellent pacing thresholds were obtained.
An angled pigtail catheter was then advanced to the proximal ascending thoracic aorta / right coronary cusp. Angiography was performed to define a coplanar angle facilitating positioning and delivery of the TAVR device. RAO8 / CAU 6 appear to be a
reasonable coplanar angle.
Pre-closure of the right common femoral arteriotomy was then performed using 2 Perclose devices and was followed by placement of an 8 Fr arterial sheath.
An AL-1 catheter was then advanced to the proximal descending thoracic aorta over 0.035' J-tipped guidewire. An Amplatz Extra-stiff wire was then advanced through the AL-1 catheter to the proximal descending thoracic aorta. The AL-1 catheter was
removed and the supportive wire was utilized to facilitate delivery of the Lao eSheath and dilator. Heparin, 5500 units, was administered and the ACT was monitored throughout the procedure.
The AL-1 catheter was then readvanced through the Lao eSheath. The 0.035' stiff wire was allowed to drift across the aortic arch and the AL1 was positioned just above the aortic valve. The stenotic leaflets were probed with a Soft-tip Straight
wire. The aortic leaflets were crossed and the AL-1 catheter followed the Soft-tip Straight wire to the mid left ventricle. The wire was removed. Left ventricular end-diastolic pressures was measured at 30 mmHg.
An Amplatz Extra-Stiff wire with a generous curved tip was then advanced to the mid left ventricle. The AL-1 catheter was removed and the Amplatz wire was left in place in order to facilitate delivery of the Lao delivery system. A 29 mm
Lao BETTYE S3 valve was brought to the table and the orientation of the valve on the balloon delivery system was confirmed by all operators. The BETTYE S3 valve was advanced through the eSheath and into the proximal descending thoracic aorta.
The BETTYE valve was centered on the delivery balloon and the entire system was retroflexed as across the aortic arch in an CHALO projection. The BETTYE S3 delivery system was then advanced across the stenotic aortic leaflets. The pusher was
retracted. Angiography confirmed appropriate positioning of the valve and rapid pacing was undertaken. The 29 mm BETTYE S3 valve was deployed during rapid pacing. Valve deployment was uneventful. Aortography following valve deployment suggested
no aortic insufficiency while the wire was still across the valve in the left ventricle.
The post valve deployment transthoracic echocardiogram was notable for no aortic insufficiency and a mean gradient of 6 mmHg.
The Lao valve delivery system was removed. The Lao eSheath was removed and the Perclose knots were advanced to the arteriotomy site with a residual brisk ooze from the arteriotomy site. Angiography after the Perclose knots were advanced to
the arteriotomy site and demonstrated good distal runoff but the decision was made to deploy an 8 Fr. Angio-Seal resulting in excellent hemostasis.
The 6 Fr right radial artery was removed and a TR band was placed. The temporary pacemaker and 6 Fr sheath were removed and manual pressure was held over the 6 Barbadian femoral venous access.
Protamine was administered to reverse the intravenous anticoagulant.
Fluoro Time: 13.2 min, Dose: 286.6 mGy, DAP : 29.6 Gy.cm2
CONCLUSIONS:
1. Severe symptomatic aortic stenosis. Successful deployment of a 29 mm BETTYE S3 valve with a post valve deployment mean gradient of 6 mmHg
2. The right common femoral arteriotomy was closed with 2 Perclose devices and an 8 Fr. Angio-Seal
Copy to: Dr. Gabriel Hu
--- NOTE | 2024-11-15 15:06 | PTCARENOTE ---
Patient complained of a sharp pain bilateral judaism areas when he coughs. States it doesn't happen any other time, neuro status unchanged. Notified CT surgery PARTS EXPEDITER who came and saw the patient. BP 98/51-77, will medicate with tylenol if discomfort
continues but patient does not appear to be in any distress, no further orders at this time.
[2024-11-15] MEDS: MIRALAX 17 GRAMS PO (18:06)
--- NOTE | 2024-11-15 19:59 | PTCARENOTE ---
Pt. received at change of shift. Pt. seen and assessed in room. Pt. AOx1 (to self), per report, pt. AOx1-2 at baseline. at bedside. b/l groins assessed, dressings c/d/i and soft. R wrist c/d/i. This RN explained plan of care. Pt. and
verbalize understanding. Call dai within reach. Continuing to monitor at this time.
[2024-11-16] VITALS (12 sets, daily range): BP systolic 87–112; BP diastolic 51–66; BMI 22.8
--- NOTE | 2024-11-16 05:25 | W.PN.CT ---
Today's Communication / Plan
-
-pod #2
-nsr 70-80s overnight. No tello or pauses
-LBBB again present on morning EKG
-current meds (midodrine, eye drops, MVI).
-Pt was on Xarelto preop, restart today.
-encourage IS, OOB, ambulate
-Rhythm monitor at d/c
Assessment / Plan
-
- Severe symptomatic - s/p Right trans femoral TAVR with a 29mm Lao TAVR valve on 11/14/24, pod #2
- Postop TTE: LVEF was 65% pre and post TAVR without inotropic support, no regional wma or dyskinesia. The aortic valve was well seated without detectable PVL and mean gradient across the new valve was 6mmHg.
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
- Hypertension
- Hyperlipidemia
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
- BPH
- History of atrial fibrillation- on Xarelto preop
- History of prostatic cancer status post radiation for treatment 2016
- Hx LE clot removal
- Septum deviation
- Former smoker
- Acute postop LBBB, 1st degree AVB post TAVR
- Acute postop likely vasovagal syncope/hypotension-recovered quickly with 250 LR and increased Levo
Subjective
Procedure
s/p Right trans femoral TAVR with a 29mm Lao TAVR valve on 11/14/24
-
Date of Service: November 16, 2024
Objective Data
-
Lab Results
11/15/24 02:57
11/15/24 02:57
PT 16.1 Sec (11.4-14.6) H 11/05/24 12:13
INR 1.26 11/05/24 12:13
APTT 36.4 Sec (23.4-35.0) H 11/05/24 12:13
Vital Signs
Vital Signs
Temp Pulse Resp BP Pulse Ox
98.2 F 78 20 98/64 93
11/16/24 03:32 11/16/24 05:00 11/16/24 03:32 11/16/24 04:07 11/16/24 03:32
CT Intake/Output/Weight
11/15/24 11/15/24 11/16/24
06:59 18:59 06:59
Intake Total 120 / 5860 240 / 340 100 / 340
Output Total 800 / 1575 600 / 1150 550 / 1150
Balance -680 / 4285 -360 / -810 -450 / -810
SaO2: 93
Physical Exam
-
General: Awake
Cardiovascular: Regular rate & rhythm
Respiratory: Clear
Incision: Dressing Intact
--- NOTE | 2024-11-16 08:02 | W.DCSUMMARY ---
Discharge Summary
Discharge Data
Date of Admission: 11/14/24
Date of Discharge: 11/16/24
Total time spent discharging patient (in min): 32
-
Pending Results: No
Hospital Course
Primary care physician:
Dr. Limon
Outpatient heater installer:
Dr. Hu
Inpatient consultants:
CAL
Procedures:
1. Right Transfemoral TAVR #29 S3 valve
Primary Diagnosis:
1. Severe aortic stenosis
Secondary Diagnoses:
1. post-op Hypotension
2. Pulmonary embolism on xarelto
3. glaucoma
4. Atrial fibrillation
5. Benign prostatic hypertrophy
HPI: 84 y/o male present electively on 11/14 for an elective TAVR with Dr. blakely
Hospital course: Patient was electively admitted on 11/14. Postoperatively he returned to the [facility] recovery area on Levophed and a new left bundle branch block. Due to an elevated LVEDP of 30 patient received 40 mg of IV Lasix. Patient had a
hypotensive/vagal event at 1740 when levo was down titrated so it was temporarily up to 5 mg/h and he was given a to 50 cc bolus of lactated Ringer's. Labs were stable so patient remained in IVU. Throughout the night Levophed was weaned down and
on 11/15 postoperative day 1 patient was started on midodrine 5 mg 3 times a day. He was also given another lactated ringer bolus of 500 mL. Repeat echocardiogram showed a LVEF of 55% and peak/mean gradients for the new aortic valve was 18/10
mmHg. patient was kept an additional day for blood pressure monitoring. On 11/16 postoperative day 2 patient's blood pressure remained stable on oral midodrine. He was given a outpatient heart monitor to monitor his new left bundle branch block.
Bilateral groins and labs remained stable, patient due to resume Xarelto tonight. Overall he was deemed stable for discharge.
Home medication changes:
see below
Discharge Plan
-
Patient Disposition: Home (Routine Discharge)
Discharge Diagnosis/Procedures: aortic stenosis/TAVR
Condition: Fair
Diet: No restrictions
Activity: No strenuous activity
Driving Restrictions: Not until seen by your Dr
Bathing Restrictions: OK to Shower
Others Tests: Please call Dr. Hu's office to schedule a 30-day follow up echocardiogram
Other Services: Cardiac Rehab
Specialty Instructions: Weigh Daily- Call MD for wt gain/loss 3 lbs overnight/5 lbs in 1 week
Activity Restrictions/Additional Instructions:
Please call to make appointments for Phase II Cardiac Rehab:
[facility]
[address] [place] [address]
[phone] [facility]
Stand Alone Forms: DC Inst - TransFemoral (TAVR)
Referrals:
CT Transitional Care Nurse [Outside] (The Cardiothoracic Transitional Care Nurse will call you to set up a visit in 1-2 days.)
Jeanine Hu MD [Affiliate] - 12/16/24 1:00 pm
Bucky Reyes DO [Family Provider] -
Additional Discharge Medication Instructions: Please restart your Xarelto tonight
Please check your blood pressure before taking your midodrine. Do not take it if your systolic blood pressure is above 130
Prescriptions:
New
acetaminophen 325 mg Tablet
650 mg PO Q6HPRN PRN (Reason: ROMO, mild pain, or fever >101F) Qty: 0 0RF
midodrine 5 mg Tablet
5 mg PO TID@0800,1300,1800 Qty: 30 1RF
Continued
multivitamin Tablet
1 tab PO DAILY
dorzolamide-timolol 22.3-6.8 mg/mL Drops
1 drp OPHTHALMIC (EYE) BID
coQ10 (ubiquinol) 200 mg Capsule
200 mg PO DAILY
Xarelto 20 mg Tablet
20 mg PO QPM
PreserVision AREDS-2 250-90-40-1 mg Capsule
1 tab PO BID
Discharge Orders:
Discharge Patient (As Directed); Ordered 11/16/24
Ordered By: Isha Vaughn
Care Plan Goals
Care Plan Goals:
Problem: Readiness for enhanced knowledge related to diagnosis and treatment plan
Goal: Understand your diagnosis and treatment plan needs, including medications if applicable.
Instructions: Know your diagnosis, underlying causes and treatment plan options, including medications if applicable. Consult with your health care team to learn about your diagnosis and treatment plan, including medications if applicable.
Discharge Date and Time
Print Language: DANISH
--- NOTE | 2024-11-16 08:05 | W.PN.CARDCBS ---
Today's Communication / Plan
-
No objection to discharge
Conduction system improving
Resume NOAC therapy
Outpatient 14-day monitor
Blood pressures improving�I have no objection to 2 to 3 days of midodrine although I would not continue that long-term
Impression / Plan
-
Primary Obiee Lead Developer: Dr. Hu of [facility]
Assessment:
-Severe symptomatic s/p R TF TAVR 29mm Lao TAVR valve 11/14/24
-Hypotension post procedure with syncope
-Post procedure LBBB
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
-Hypertension
-Hyperlipidemia
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
-History of atrial fibrillation
-Chronic OAC with xarelto
-History of LE clot removal
-History of prostatic cancer status post radiation for treatment 2016
-BPH
-Former smoker
-Acute postop LBBB, 1st degree AVB post TAVR
-Acute postop likely vasovagal syncope/hypotension-recovered quickly with 250 LR and increased Levo
ECHO 08/10/24: EF 50-60%, MAC, mild MR, severe with peak/mean gradients 23/53 mmHg, RAEGAN 0.6 cm�, mild AR
ECHO 11/14/24: EF 65 to 70%, status post Lao LANCE TAVR with peak/mean gradients 11/6 mmHg, no AR seen
ECHO 11/15/24: pending
Plan:
-s/p R TF Lao TAVR 11/14/24. LVEDP during procedure noted to be 30mmHg and was diuresed with 40mg IV lasix
-post op with syncopal episode and hypotension which improved with 250cc LR and now off drips
-echo 11/14 as above, EF 65-70%.
-Blood pressures slowly improving. I have no objection to low-dose midodrine 5 mg 3 times daily for 2 to 3 days although I do not suspect he will require this long-term
- no issues with groin sites overnight
-preprocedure had LVH with QRS widening, post op with LBBB and 1st degree av block. No pauses on telemetry overnight. His first-degree AV block is shorter this morning than it was yesterday demonstrating signs of conduction system improvement.
There is no indication for permanent pacing. He has a 14-day monitor and teaching instructions were given yesterday
-resume xarelto
-I have no objection to discharge
Progress Note - Obiee Lead Developer
Subjective
Date of Service: November 16, 2024
Feels relatively well. He had some periods of confusion yesterday which have abated in discussion with patient and
Objective
Labs:
11/15/24 02:57
11/15/24 02:57
Labs
Hgb 13.3 g/dL (13.0-18.0) 11/15/24 02:57
Hct 38.6 % (39.0-52.0) L 11/15/24 02:57
Plt Count 123 10^3/uL (130-400) L 11/15/24 02:57
PT 16.1 Sec (11.4-14.6) H 11/05/24 12:13
INR 1.26 11/05/24 12:13
APTT 36.4 Sec (23.4-35.0) H 11/05/24 12:13
Sodium 135 mmol/L (135-145) 11/15/24 02:57
Potassium 4.0 mmol/L (3.5-5.1) 11/15/24 02:57
BUN 20 mg/dl (9-20) 11/15/24 02:57
Creatinine 1.0 mg/dL (0.7-1.3) 11/15/24 02:57
Glucose 147 mg/dl (70-99) H 11/15/24 02:57
Vital Signs and I&O:
Vital Signs
Temp Pulse Resp BP Pulse Ox
98.2 F 78 20 98/64 93
11/16/24 03:32 11/16/24 05:00 11/16/24 03:32 11/16/24 04:07 11/16/24 05:29
Vital Signs
Temp Pulse Resp BP Pulse Ox
98.2 F 78 20 98/64 93
11/16/24 03:32 11/16/24 05:00 11/16/24 03:32 11/16/24 04:07 11/16/24 05:29
Intake & Output
11/14/24 11/15/24 11/16/24 11/17/24
06:59 06:59 06:59 06:59
Intake Total 5860 / 5860 340 / 340
Output Total 1575 / 1575 1150 / 1150
Balance 4285 / 4285 -810 / -810
Physical Exam
Physical Exam
Physical Exam
General: no apparent distress, not acutely ill
Neck: supple. no meningeal signs. normal psoterior pharynx
Heart: s1/s2 regular rate and rhythm, no murmur. equal radial pulses.
Lungs: no acute respiratory distress. clear bilaterally
Abdomen: normal bowel sounds. not tender. no CVAT
Neuro: alert and oriented. no focal neurological deficits
Skin: no rash
Psychiatric: well kept. interactive and cooperative
Extremities: no edema. no calf tenderness. negative homans. good distal pulses
[2024-11-16] MEDS: COSOPT EYE DROPS 1 DROP OPHTH (08:35)
[2024-11-16] MEDS: ProAmatine 5 MG PO (08:35)
[2024-11-16] MEDS: OCUVITE SOFTGEL 1 CAP PO (08:35)
[2024-11-16] MEDS: THERAGRAN 1 TABLET PO (08:35)
== END 2024-11-16 12:09 | disposition home or self-care (01) | DRG 266 ==
LOC: IVU 07:15
PROVIDERS: Nurse Practitioner; Physician Assistant Medical; ADMITTING PHYSICIAN Thoracic Surgery (Cardiothoracic Vascular Surgery); CONSULT PHYSICIAN Internal Medicine Cardiovascular Disease; FAMILY PHYSICIAN Student in an Organized Health Care Education/Training Program; OTHER PHYSICIAN Internal Medicine Cardiovascular Disease
PROC: 02RF38Z Replacement of Aortic Valve with Zooplastic Tissue, Percutaneous Approach (ICD-10-PCS; 2024-11-14)
DX: I35.0 Nonrheumatic aortic (valve) stenosis (principal); Z00.6 Encounter for examination for normal comparison and control in clinical research program; I50.43 Acute on chronic combined systolic (congestive) and diastolic (congestive) heart failure; D68.59 Other primary thrombophilia; I48.91 Unspecified atrial fibrillation; I11.0 Hypertensive heart disease with heart failure; N40.0 Benign prostatic hyperplasia without lower urinary tract symptoms; K44.9 Diaphragmatic hernia without obstruction or gangrene; E78.5 Hyperlipidemia, unspecified; H40.9 Unspecified glaucoma; I95.81 Postprocedural hypotension; I44.7 Left bundle-branch block, unspecified; Z79.01 Long term (current) use of anticoagulants; Z79.899 Other long term (current) drug therapy; Z86.711 Personal history of pulmonary embolism; Z87.891 Personal history of nicotine dependence; Z92.3 Personal history of irradiation
CPT/HCPCS: 93308; 33361; 36415; 71045; 71046; 80048; 80053; 81003; 82248; 83036; 83735; 83880; 85025; 85027; 85347; 85610; 85730; 86850; 86900; 86901; 87070; 93005; 93306; 93321; 93325; C1760; C1769; C1894; Q9967